=== PATIENT | male | born 1935 | race Caucasian/White ===

== ENCOUNTER 2021-06-29 16:31 | Observation (INO) ==
[2021-06-29] MEDS ORDERED: LACTATED RINGERS 1,000 ML IV ONE (17:01)
[2021-06-29] MEDS ORDERED: 0.9 % SODIUM CHLORIDE 500 ML IV ONE ×2 (17:03→18:28)
[2021-06-29 17:38] LABS: Basophils # (Auto) 0.03 K/mcL (0.00-0.30); Basophils % (Auto) 0.4 % (0.0-2.0); Eosinophils # (Auto) 0.02 K/mcL (0.00-0.70); Eosinophils % (Auto) 0.2 % (0.0-7.0); Hematocrit 39.9 % (40.1-51.0); Hemoglobin 13.5 g/dL (13.7-17.5); Lymphocytes # (Auto) 1.84 K/mcL (1.50-4.80); Lymphocytes % (Auto) 22.9 % (15.5-49.0); Mean Cell Volume 90.3 fL (80.0-100.0); Mean Corpuscular HGB Conc 33.8 g/dL (31.0-36.0); Mean Platelet Volume 10.3 fL (7.4-10.4); Monocytes # (Auto) 1.02 K/mcL (0.10-0.90); Monocytes % (Auto) 12.7 % (1.0-12.0); Neutrophils % (Auto) 63.8 % (38.0-78.0); Platelet Count 165 K/mcL (140-440); RBC 4.42 M/mcL (4.63-6.08); Red Cell Distribution Width 13.6 % (11.5-14.5); WBC 8.1 K/mcL (4.5-11.0)
--- NOTE | 2021-06-29 17:40 | Cat Scan Report ---
CLINICAL INFORMATION: Trauma COMPARISON: None. TECHNIQUE: 2.5 mm helical slices were obtained in the skull base to vertex. Following reconstruction, axial reformatted images were reviewed at bone and parenchymal windows. The exam was performed using radiation dose optimization techniques including, but not limited to, automated exposure control, adjustment of the mA and/or kV according to patient size and use of iterative reconstruction technique. FINDINGS: The ventricles, sulci, fissures, and cisterns are symmetrically enlarged compatible with mild age-related atrophy. No extra-axial fluid collections are identified. Mild patchy chronic ischemic changes, in the deep cerebral white matter, are expected for age. There is no hemorrhage, mass effect, or edema. Bone windows show no osseous abnormality. IMPRESSION: Mild atrophy and chronic ischemic changes in the deep cerebral white matter-expected for age. No acute findings Interpreted and Authenticated by: Geo Arteaga 06/29/21
--- NOTE | 2021-06-29 17:42 | XRay Report ---
CLINICAL INFORMATION: Syncope COMPARISON: 10/26/2011 TECHNIQUE: Portable FINDINGS: The heart size, mediastinum and pulmonary vessels are unremarkable. Sternotomy change is again noted. There is moderate interstitial disease in both mid and lower lungs likely representing progression in interstitial fibrosis. Interstitial disease is also noted on the remote 2012 exam, but much less severe. There is moderate chronic elevation left diaphragm. No effusions. The bones and soft tissues are within normal limits. IMPRESSION: Moderate interstitial disease in both mid and lower lungs likely reflecting progression in bilateral interstitial fibrosis. Moderate chronic elevation left diaphragm Interpreted and Authenticated by: Geo Arteaga 06/29/21
[2021-06-29 18:08] LABS: ALT/SGPT 21 U/L (<40); AST/SGOT 27 U/L (<40); Albumin 4.2 gm/dL (3.2-5.2); Albumin/Globulin Ratio 1.6 (1.0-2.3); Alkaline Phosphatase 80 U/L (39-117); Bilirubin,Total 0.4 mg/dL (0.1-1.0); Blood Urea Nitrogen 18 mg/dL (8-23); Carbon Dioxide 23 mmol/L (22-30); Chloride 104 mmol/L (96-108); Globulin 2.6 gm/dL (2.2-3.7); Glomerular Filtration Rate 76; Glucose 112 mg/dL (70-105)
--- NOTE | 2021-06-29 18:50 | Emergency Department Note ---
Syncope HPI General Chief Complaint: Syncope Stated Complaint: lightheaded, n/v Time Seen by Provider: 06/29/21 16:38 Source: patient and EMS Mode of arrival: EMS History of Present Illness HPI Narrative: Narrative: Very pleasant 86-year-old male with a history of: Adenocarcinoma status post partial colectomy, coronary artery disease, CABG 2006, SVT, hyperlipidemia, anemia presenting to the ED after a syncopal episode. Says he was doing work in his yard when he suddenly felt lightheaded and syncopized. Did hit the back of his head but does not take any blood thinners. He had no preceding symptoms other than feeling like he was going to pass out. No chest pain no shortness of breath no palpitations no focal neurologic complaint. No new leg swelling. No history of DVT or PE. Has felt lightheaded recently in the past. Currently has no acute complaints other than he says he is afraid to stand up because he will get lightheaded. Does not have any head pain neck pain thoracic or abdominal pain or pain or weakness in his extremities/no injuries. No recent medication changes. Says his only medication is cholesterol medication and some eyedrops of vitamins. Related Data Home Medications Medication Instructions Recorded Confirmed ascorbate calcium (vitamin C) 500 500 mg PO QDAY 11/26/14 05/28/21 mg tablet pravastatin 80 mg tablet 80 tab PO HS 11/26/14 06/29/21 (Pravachol) vitamins A,C,T-ufky-fzpyhg 14,320 1 ea PO BID 11/26/14 11/27/20 unit-226 mg-200 unit capsule (PreserVision AREDS) fluticasone propionate 50 1 spray INTRANASAL QDAY 03/27/20 11/27/20 mcg/actuation nasal spray,suspension nitroglycerin 0.4 mg sublingual 0.4 mg SUBLINGUAL Q5M PRN 03/27/20 11/27/20 tablet (Nitrostat) [id number] C-herb no.124 1 tab PO QDAY 04/10/20 05/28/21 [Airborne (ascorbic acid)] vitamin B complex 1 tab PO QDAY 04/22/20 11/27/20 Allergies Allergy/AdvReac Type Severity Reaction Status Date / Time No Known Drug Allergies Allergy Verified 06/29/21 16:31 Review of Systems ROS ROS Narrative: Narrative: At least 10 systems reviewed and otherwise acutely negative except as in the HPI PFSH Narrative Patient History Narrative: Narrative: Medical/Surgical/Family History All Active Problems Syncope (Acute) Atherosclerotic heart disease of [place] coronary artery without angina pectoris (Acute) Chronic blood loss anemia (Acute) Malignant neoplasm of right colon (Acute) Surgical History History of appendectomy History of cardiac catheterization History of cataract extraction History of colonoscopy History of coronary artery bypass graft 03/08/2007 History of thyroidectomy, 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 Head: Normocephalic, atraumatic, Eyes: No Icterus, no obvious conjunctival pallor ENT: Slightly dry mucus membranes, Neck: Supple, no midline tenderness Cardiac: Normal heart sounds, palpable peripheral pulses, no peripheral edema Pulmonary: Normal respiratory effort. Breath sounds clear, no wheeze, rhonchi, rales, Gastrointestinal: Abdomen soft, non-distended, non-tender, Musculoskeletal: No gross deformities, well perfused Skin: warm, dry Neuro: Alert and oriented. No gross focal deficits moving all 4 extremities with symmetric tone, symmetric sensation, face symmetric Course Vital Signs Vital signs: Vital Signs Temperature 36.0 C L 06/29/21 16:32 Pulse Rate 58 L 06/29/21 16:32 Respiratory Rate 18 06/29/21 16:32 Blood Pressure 168/73 06/29/21 16:32 Pulse Oximetry (%) 98 06/29/21 16:32 Temperature 36.6 C 06/30/21 00:01 Pulse Rate 58 L 06/30/21 00:01 Respiratory Rate 26 H 06/30/21 00:01 Blood Pressure 134/76 06/30/21 00:01 Pulse Oximetry (%) 98 06/30/21 00:01 [facility] Narrative Medical decision making narrative: Narrative: 86-year-old male with known cardiac history presents for an episode of syncope. Here he is very lightheaded when he attempts to stand up. Possibly orthostatic or vasovagal however other consideration for ACS arrhythmia metabolic or electrolyte abnormality. Does not sound central neurologic in nature. But will obtain a CT of his head because he did reportedly hit the back of his head when he fell. Is given some IV fluids Twelve-lead EKG sinus arrhythmia heart rate 61 IA, QRS, QTc within normal some LVH pattern no obvious acute ischemia Covid flu negative Chest x-ray shows some chronic lung disease no acute findings, CT of the head no acute finding CBC no leukocytosis, his hemoglobin today is in fact 13.5, Electrolytes no significant abnormality sodium is normal potassium is normal, normal renal function Initial troponin negative Laboratory studies are reassuring, they did attempt orthostatics on the patient when he stood up he immediately felt severely lightheaded and syncopal and nauseous and almost passed out they immediately laid him back into the bed. Did give him additional 500 cc bolus. Nurses did state he vagal down to heart rate in the 30s to 40s when he stood up. Reevaluation continues to feel well while at rest but symptomatic when standing. Do believe he will warrant observation admission for further treatment of what appears to be a symptomatic orthostatic syncope at this point and further trending of his troponins. Patient is unwilling to go to [facility] or be transferred elsewhere and is really hoping if we can keep him here, I have spoken with the hospitalist who is agreeable. Repeat troponin pending at the time of admission Lab Data Result diagrams: 06/29/21 16:35 06/29/21 16:35 Labs: Lab Results 06/29/21 06/29/21 06/29/21 Range/Units 16:35 16:35 16:35 WBC 8.1 (4.5-11.0) K/mcL RBC 4.42 L (4.63-6.08) M/mcL Hgb 13.5 L (13.7-17.5) g/dL Hct 39.9 L (40.1-51.0) % MCV 90.3 (80.0-100.0) fL MCH 30.5 (26.0-34.0) pg MCHC 33.8 (31.0-36.0) g/dL RDW 13.6 (11.5-14.5) % Plt Count 165 (140-440) K/mcL MPV 10.3 (7.4-10.4) fL Neut % (Auto) 63.8 (38.0-78.0) % Lymph % (Auto) 22.9 (15.5-49.0) % [place] % (Auto) 12.7 H (1.0-12.0) % Eos % (Auto) 0.2 (0.0-7.0) % Baso % (Auto) 0.4 (0.0-2.0) % Lymph # (Auto) 1.84 (1.50-4.80) K/mcL [place] # (Auto) 1.02 H (0.10-0.90) K/mcL Eos # (Auto) 0.02 (0.00-0.70) K/mcL Baso # (Auto) 0.03 (0.00-0.30) K/mcL Absolute Neutrophils 5.14 (1.80-8.00) K/mcL Sodium 140 (133-145) mmol/L Potassium 4.2 (3.3-5.1) mmol/L Chloride 104 (96-108) mmol/L Carbon Dioxide 23 (22-30) mmol/L Anion Gap 13.0 (8.0-16.0) BUN 18 (8-23) mg/dL Creatinine 0.9 (0.7-1.2) mg/dL GFR Calculation 76 Glucose 112 H (70-105) mg/dL Calcium 9.0 (8.6-10.4) mg/dL Total Bilirubin 0.4 (0.1-1.0) mg/dL AST 27 (<40) U/L ALT 21 (<40) U/L Alkaline Phosphatase 80 (39-117) U/L Troponin T < 0.01 (<0.03) ng/mL Total Protein 6.8 (5.9-8.4) gm/dL Albumin 4.2 (3.2-5.2) gm/dL Globulin 2.6 (2.2-3.7) gm/dL Albumin/Globulin Ratio 1.6 (1.0-2.3) Urine Color Urine Appearance (Clear) Urine pH (5.0-9.0) Ur Specific [place] (1.000-1.035) Urine Protein (Negative) mg/dL Urine Glucose (UA) (Negative) mg/dL Urine Ketones (Negative) mg/dL Urine Occult Blood (Negative) mg/dL Urine Nitrate (Negative) Urine Bilirubin (Negative) mg/dL Urine Urobilinogen mg/dL Ur Leukocyte Esterase (Negative) /uL Urine RBC (0-3) /hpf Urine WBC (0-4) /hpf Ur Squamous Epith Cells (0-4) /hpf Urine Bacteria (0) /hpf Urine Mucus (None) /hpf Ur Culture Indicated? 06/29/21 06/29/21 Range/Units 19:15 20:42 WBC (4.5-11.0) K/mcL RBC (4.63-6.08) M/mcL Hgb (13.7-17.5) g/dL Hct (40.1-51.0) % MCV (80.0-100.0) fL MCH (26.0-34.0) pg MCHC (31.0-36.0) g/dL RDW (11.5-14.5) % Plt Count (140-440) K/mcL MPV (7.4-10.4) fL Neut % (Auto) (38.0-78.0) % Lymph % (Auto) (15.5-49.0) % [place] % (Auto) (1.0-12.0) % Eos % (Auto) (0.0-7.0) % Baso % (Auto) (0.0-2.0) % Lymph # (Auto) (1.50-4.80) K/mcL [place] # (Auto) (0.10-0.90) K/mcL Eos # (Auto) (0.00-0.70) K/mcL Baso # (Auto) (0.00-0.30) K/mcL Absolute Neutrophils (1.80-8.00) K/mcL Sodium (133-145) mmol/L Potassium (3.3-5.1) mmol/L Chloride (96-108) mmol/L Carbon Dioxide (22-30) mmol/L Anion Gap (8.0-16.0) BUN (8-23) mg/dL Creatinine (0.7-1.2) mg/dL GFR Calculation Glucose (70-105) mg/dL Calcium (8.6-10.4) mg/dL Total Bilirubin (0.1-1.0) mg/dL AST (<40) U/L ALT (<40) U/L Alkaline Phosphatase (39-117) U/L Troponin T < 0.01 (<0.03) ng/mL Total Protein (5.9-8.4) gm/dL Albumin (3.2-5.2) gm/dL Globulin (2.2-3.7) gm/dL Albumin/Globulin Ratio (1.0-2.3) Urine Color Yellow Urine Appearance Clear (Clear) Urine pH 7.0 (5.0-9.0) Ur Specific [place] 1.014 (1.000-1.035) Urine Protein Negative (Negative) mg/dL Urine Glucose (UA) Negative (Negative) mg/dL Urine Ketones 5 A (Negative) mg/dL Urine Occult Blood Negative (Negative) mg/dL Urine Nitrate Negative (Negative) Urine Bilirubin Negative (Negative) mg/dL Urine Urobilinogen Negative mg/dL Ur Leukocyte Esterase Negative (Negative) /uL Urine RBC 1 (0-3) /hpf Urine WBC 1 (0-4) /hpf Ur Squamous Epith Cells 0 (0-4) /hpf Urine Bacteria None (0) /hpf Urine Mucus Few A (None) /hpf Ur Culture Indicated? No ED POC Tests ED POC Tests: ALYSSIA - Influenza A Negative ALYSSIA - Influenza B Negative ALYSSIA - SARS Antigen Negative Discharge Plan Patient/Caregiver Discharge Instructions Pt seen by DENTIST ATTENDANT/PA only: No Clinical Impression: Syncope Patient Disposition: Xfer As Outpt/Obs ([facility]) Condition: Fair Discharge Date/Time: 06/29/21 21:20 Discharge Location: [facility]
--- NOTE | 2021-06-29 19:22 | Internal Med History&Physical ---
HPI History of Present Illness Patient information: Note initiated : 06/29/21 at 7:13 pm Service Date, if different from initiated Date: [] Patient: Carloz Hutchison 86 y/o M admitted on for lightheaded, n/v. Chief Complaint: [] Chief complaint: Syncope History of present illness: Mr. Hutchison is a 86 year old male with a history of hyperlipidemia, chronic anemia, SVT, coronary artery disease status post CABG 2006, colon adenocarcinoma status post right hemicolectomy 2020, obesity who presented to the emergency department after a syncopal episode that occurred while he was doing some yard work. The patient said that he suddenly felt lightheaded and passed out. The patient denied any preceding symptoms prior to the syncope. The patient did hit his head, a noncontrast CT head in the ED did not show any acute changes. In the emergency department, the patient was found to have positive orthostatic vitals. EKG did not show any acute ischemic changes, troponin was normal in the emergency department. Chest x-ray did not show any acute changes. Routine lab work showed chronic anemia, stable renal function and electrolytes. Hospital medicine was consulted for admission. Review of systems Constitutional: no fever, fatigue, or weight loss Eyes: no vision changes or pain Cardiovascular: no chest pain, positive for palpitations Respiratory: no cough or dyspnea Gastrointestinal: positive for nausea and diarrhea, no abdominal pain Genitourinary: no dysuria or difficulty voiding Musculoskeletal: no arthralgia or myalgia Integumentary: no skin lesion or wound Neurological: no focal weakness or numbness Psychiatric: no anxiety or depression Physical exam Head: Atraumatic, normal inspection. Eyes: normal appearance, no scleral icterus. Neck: full ROM Respiratory: no respiratory distress. Cardiovascular: normal rate and rhythm, S1, S2. GI/Abdominal: soft, nontender, no guarding. Extremities: full range of motion, nontender. Neurological: CN II-XII intact, intact motor, intact sensation. Psychiatric: normal mood. 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 History of tonsillectomy Family History Mother Alzheimers disease Daughter Pancreatic cancer, Onset Age: 40 Father Prostate cancer Uncle Diabetes Social History alcohol intake frequency: holiday/special occasion only MEDS/ALLERGIES Home Medications and Allergies Home Medications Medication Instructions Recorded Confirmed Type ascorbate calcium (vitamin C) 500 500 mg PO QDAY 11/26/14 05/28/21 History mg tablet pravastatin 80 mg tablet 80 tab PO HS 11/26/14 06/29/21 History (Pravachol) vitamins A,C,H-pwrf-yzrcay 14,320 1 ea PO BID 11/26/14 11/27/20 History unit-226 mg-200 unit capsule (PreserVision AREDS) fluticasone propionate 50 1 spray INTRANASAL QDAY 03/27/20 11/27/20 History mcg/actuation nasal spray,suspension nitroglycerin 0.4 mg sublingual 0.4 mg SUBLINGUAL Q5M PRN 03/27/20 11/27/20 History tablet (Nitrostat) ujojhmvz-icj-khs C-herb no.124 1 tab PO QDAY 04/10/20 05/28/21 History [Airborne (ascorbic acid)] vitamin B complex 1 tab PO QDAY 04/22/20 11/27/20 History Allergies Allergy/AdvReac Type Severity Reaction Status Date / Time No Known Drug Allergies Allergy Verified 06/29/21 16:31 EXAM Constitutional Vitals: Temp Pulse Resp BP Pulse Ox 96.8 F L 68 12 144/67 99 06/29/21 16:32 06/29/21 18:34 06/29/21 18:34 06/29/21 18:31 06/29/21 18:34 DATA Data Completed and Pending Labs: Labs from last 24 hours 06/29/21 06/29/21 06/29/21 16:35 16:35 16:35 WBC 8.1 RBC 4.42 L Hgb 13.5 L Hct 39.9 L MCV 90.3 MCH 30.5 MCHC 33.8 RDW 13.6 Plt Count 165 MPV 10.3 Neut % (Auto) 63.8 Lymph % (Auto) 22.9 [place] % (Auto) 12.7 H Eos % (Auto) 0.2 Baso % (Auto) 0.4 Lymph # (Auto) 1.84 [place] # (Auto) 1.02 H Eos # (Auto) 0.02 Baso # (Auto) 0.03 Absolute Neutrophils 5.14 Sodium 140 Potassium 4.2 Chloride 104 Carbon Dioxide 23 Anion Gap 13.0 BUN 18 Creatinine 0.9 GFR Calculation 76 Glucose 112 H Calcium 9.0 Total Bilirubin 0.4 AST 27 ALT 21 Alkaline Phosphatase 80 Troponin T < 0.01 Total Protein 6.8 Albumin 4.2 Globulin 2.6 Albumin/Globulin Ratio 1.6 A/P Narrative A/P Narrative: Assessment: 86 year old male with a history of hyperlipidemia, chronic anemia, SVT, coronary artery disease status post CABG 2006, colon adenocarcinoma status post right hemicolectomy 2020, obesity who presented to the emergency department after a syncopal episode that occurred while he was doing some yard work. #Syncope, nausea, diarrhea #History of paroxysmal supraventricular tachycardia #Coronary artery disease status post CABG #Chronic normocytic anemia #Colon adenocarcinoma status post right hemicolectomy #Hypertension #BPH #Obesity BMI 33 Plan -Admit to observation on MedSurg unit. -IV fluid. -Trend troponin. -Orthostatic vitals. -phototypesetting equipment monitor. -TTE -Consider adding antihypertensive. -Home medication reconciliation. -Consider work-up for PE but seems unlikely. -Consider MRI brain. -Regular diet -PT consult -Disposition: Home when stable, consider outpatient phototypesetting equipment monitor. Time Spent With Patient Time: Total time spent is greater than 50% in coordination of care (as documented) at patient's floor/unit and/or counseling patient:
[2021-06-29 19:56] LABS: Appearance,Urine CLEAR (Clear); Bilirubin,Urine Negative (Negative); Color,Urine YELLOW; Culture Indicated,Urine No; Glucose,Urine (UA) Negative (Negative); Ketones,Urine 5 mg/dL (Negative); Leukocyte Esterase,Urine Negative /uL (Negative); Mucus,Urine FEW /hpf; Nitrate,Urine Negative (Negative); Protein,Urine Negative (Negative); Specific Gravity,Urine 1.014 (1.000-1.035); Urine Blood Negative (Negative); Urine RBC 1 /hpf (0-3); Urine Squamous Epithelial Cell 0 /hpf (0-4); Urine WBC 1 /hpf (0-4); Urobilinogen,Urine Negative
--- NOTE | 2021-06-29 20:09 | EKG ---
[facility] Test Date: 2021-06-29 Pat Name: Carloz Hutchison Department: ED Room: Gender: Male Superintendent [employer]: [employer] : 1935 Requested By: Darnell Naidu Order Number: [id number] Reading MD: Florence Rincon D.O. Measurements Intervals [place] Rate: 62 P: 70 [place]: 157 QRS: -54 QRSD: 100 T: 41 QT: 418 QTc: 425 Interpretive Statements Sinus arrhythm Probable left atrial enlargement Abnormal R-wave progression, early transition Electronically Signed On 06-29-2021 20:09:49 PST by Florence Rincon D.O. /store/[email or web address]/[id number]
--- NOTE | 2021-06-29 20:11 | EKG ---
[facility] Test Date: 2021-06-29 Pat Name: Carloz Hutchison Department: ED Room: Gender: Male Manager Medicaid: [employer] : 1935 Requested By: Ez Rhodes Order Number: [id number] Reading MD: Florence Rincon D.O. Measurements Intervals [place] Rate: 61 P: 71 [place]: 153 QRS: -53 QRSD: 102 T: 64 QT: 455 QTc: 459 Interpretive Statements Sinus arrhythmia Probable left atrial enlargement Left anterior fascicular block Abnormal R-wave progression, early transition Left ventricular hypertrophy Electronically Signed On 06-29-2021 20:11:00 PST by Florence Rincon D.O. /store/M0/[id number]
[2021-06-29] MEDS ORDERED: 0.9 % SODIUM CHLORIDE 1,000 ML IV SCH (21:30)
[2021-06-29] MEDS ORDERED: ONDANSETRON 4 MG/2 ML VIAL IV PRN (21:30)
[2021-06-29] MEDS ORDERED: ACETAMINOPHEN 325 MG TABLET PO PRN (21:30)
[2021-06-29] MEDS: SENNOSIDES 1 TABLET PO SCH ×2 (22:00→22:01)
[2021-06-29] MEDS: 0.9 % SODIUM CHLORIDE 10 ML SYRINGE IV SCH (22:07)
[2021-06-30 04:46] LABS: Basophils # (Auto) 0.02 K/mcL (0.00-0.30); Basophils % (Auto) 0.2 % (0.0-2.0); Eosinophils # (Auto) 0.03 K/mcL (0.00-0.70); Eosinophils % (Auto) 0.4 % (0.0-7.0); Hematocrit 38.1 % (40.1-51.0); Hemoglobin 12.8 g/dL (13.7-17.5); Lymphocytes # (Auto) 1.82 K/mcL (1.50-4.80); Lymphocytes % (Auto) 22.3 % (15.5-49.0); Mean Corpuscular HGB Conc 33.6 g/dL (31.0-36.0); Mean Platelet Volume 10.4 fL (7.4-10.4); Monocytes # (Auto) 1.11 K/mcL (0.10-0.90); Monocytes % (Auto) 13.6 % (1.0-12.0); Neutrophils % (Auto) 63.5 % (38.0-78.0); Platelet Count 153 K/mcL (140-440); RBC 4.14 M/mcL (4.63-6.08); Red Cell Distribution Width 13.6 % (11.5-14.5); WBC 8.2 K/mcL (4.5-11.0)
[2021-06-30 05:04] LABS: ALT/SGPT 16 U/L (<40); AST/SGOT 21 U/L (<40); Albumin 3.6 gm/dL (3.2-5.2); Albumin/Globulin Ratio 1.5 (1.0-2.3); Alkaline Phosphatase 71 U/L (39-117); Bilirubin,Direct < 0.2 mg/dL (0-0.3); Bilirubin,Total 0.5 mg/dL (0.1-1.0); Blood Urea Nitrogen 14 mg/dL (8-23); Calcium 8.6 mg/dL (8.6-10.4); Carbon Dioxide 24 mmol/L (22-30); Chloride 106 mmol/L (96-108); Globulin 2.4 gm/dL (2.2-3.7); Glomerular Filtration Rate 85; Glucose 108 mg/dL (70-105); Lactate Dehydrogenase 185 U/L (135-225); Phosphorous 3.5 mg/dL (2.5-4.5); Triglycerides 84 mg/dL (<150); Uric Acid 4.5 mg/dL (2.5-8.0)
[2021-06-30] MEDS: 0.9 % SODIUM CHLORIDE 10 ML SYRINGE IV SCH ×2 (05:25→15:44)
[2021-06-30] MEDS ORDERED: NITROGLYCERIN 0.4 MG TAB.SUBL SL PRN (07:38)
--- NOTE | 2021-06-30 17:14 | Discharge Summary ---
Discharge Provider Provider Patient information: Note initiated : 06/30/21 at 5:11 pm Service Date, if different from initiated Date: [] Patient: Carloz Hutchison 86 y/o M admitted on 06/29/21 for lightheaded, n/v. Chief Complaint: [] Date of admission: 06/29/21 21:20 Discharge date: 06/30/21 Primary care physician: Indigo Crockett Consults: 06/29/21 Consult to Physician [CONS] Stat Comment: Consulting Provider: Ja Murphy Reason For Exam: Physician to Consult Discharge Meds Discharge Medications Home Medications ascorbate calcium (vitamin C) 500 mg tablet 500 mg PO QDAY 11/26/14 [History Confirmed 06/30/21 Last Taken 06/29/21 09:00] pravastatin 80 mg tablet (Pravachol) 80 tab PO HS 11/26/14 [History Confirmed 06/30/21 Last Taken 06/28/21 21:00] nitroglycerin 0.4 mg sublingual tablet (Nitrostat) 0.4 mg SUBLINGUAL Q5M PRN 03/27/20 [History Confirmed 06/30/21 Last Taken 03/26/20] Ocuvite Preservision 1 tab-cap PO QDAY 06/30/21 [History Confirmed 06/30/21 Last Taken 06/29/21 09:00] COURSE Hospital Course Hospital course: Mr. Hutchison is a 86 year old male with a history of hyperlipidemia, chronic anemia, SVT, coronary artery disease status post CABG 2006, colon adenocarcinoma status post right hemicolectomy 2020, obesity who presented to the emergency department after a syncopal episode that occurred while he was doing some yard work. The patient said that he suddenly felt lightheaded and passed out. The patient denied any preceding symptoms prior to the syncope. The patient did hit his head, a noncontrast CT head in the ED did not show any acute changes. In the emergency department, the patient was found to have positive orthostatic vitals. EKG did not show any acute ischemic changes, troponin was normal in the emergency department. Chest x-ray did not show any acute changes. Routine lab work showed chronic anemia, stable renal function and electrolytes. Hospital medicine was consulted for admission. 06/30 Troponin trend overnight was normal. Back to baseline today, cleared to discharge home by PT. No concerning rhythm changes on telemetry. ECHO report pending. 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 Follow up with PCP. Physical exam Head: Atraumatic, normal inspection. Eyes: normal appearance, no scleral icterus. Neck: full ROM Respiratory: no respiratory distress. Cardiovascular: normal rate and rhythm, S1, S2. GI/Abdominal: soft, nontender, no guarding. Extremities: full range of motion, nontender. Neurological: CN II-XII intact, intact motor, intact sensation. Psychiatric: normal mood. Skin: warm, normal color Discharge diagnosis: Syncope Time Spent with Patient Time attestation: Total time spent providing and/or coordinating discharge services: EXAM Constitutional Vitals: Temp Pulse Resp BP Pulse Ox 98.6 F 52 L 13 141/60 100 06/30/21 16:01 06/30/21 16:16 06/30/21 08:44 06/30/21 16:01 06/30/21 16:16 Discharge Data Data Completed and Pending Labs on day of discharge: Labs from last 24 hours 06/30/21 06/30/21 06/30/21 03:57 03:57 03:57 WBC 8.2 RBC 4.14 L Hgb 12.8 L Hct 38.1 L MCV 92.0 MCH 30.9 MCHC 33.6 RDW 13.6 Plt Count 153 MPV 10.4 Neut % (Auto) 63.5 Lymph % (Auto) 22.3 Davison % (Auto) 13.6 H Eos % (Auto) 0.4 Baso % (Auto) 0.2 Lymph # (Auto) 1.82 Davison # (Auto) 1.11 H Eos # (Auto) 0.03 Baso # (Auto) 0.02 Absolute Neutrophils 5.19 Sodium 139 Potassium 4.1 Chloride 106 Carbon Dioxide 24 Anion Gap 9.0 BUN 14 Creatinine 0.7 GFR Calculation 85 Glucose 108 H Uric Acid 4.5 Calcium 8.6 Phosphorus 3.5 Magnesium 2.1 Total Bilirubin 0.5 Direct Bilirubin < 0.2 GGT 28 AST 21 ALT 16 Alkaline Phosphatase 71 Lactate Dehydrogenase 185 Troponin T < 0.01 Total Protein 6.0 Albumin 3.6 Globulin 2.4 Albumin/Globulin Ratio 1.5 Triglycerides 84 Urine Color Urine Appearance Urine pH Ur Specific [place] Urine Protein Urine Glucose (UA) Urine Ketones Urine Occult Blood Urine Nitrate Urine Bilirubin Urine Urobilinogen Ur Leukocyte Esterase Urine RBC Urine WBC Ur Squamous Epith Cells Urine Bacteria Urine Mucus Ur Culture Indicated? 06/30/21 06/29/21 06/29/21 00:33 20:42 19:15 WBC RBC Hgb Hct MCV MCH MCHC RDW Plt Count MPV Neut % (Auto) Lymph % (Auto) Davison % (Auto) Eos % (Auto) Baso % (Auto) Lymph # (Auto) Davison # (Auto) Eos # (Auto) Baso # (Auto) Absolute Neutrophils Sodium Potassium Chloride Carbon Dioxide Anion Gap BUN Creatinine GFR Calculation Glucose Uric Acid Calcium Phosphorus Magnesium Total Bilirubin Direct Bilirubin GGT AST ALT Alkaline Phosphatase Lactate Dehydrogenase Troponin T < 0.01 < 0.01 Total Protein Albumin Globulin Albumin/Globulin Ratio Triglycerides Urine Color Yellow Urine Appearance Clear Urine pH 7.0 Ur Specific [place] 1.014 Urine Protein Negative Urine Glucose (UA) Negative Urine Ketones 5 A Urine Occult Blood Negative Urine Nitrate Negative Urine Bilirubin Negative Urine Urobilinogen Negative Ur Leukocyte Esterase Negative Urine RBC 1 Urine WBC 1 Ur Squamous Epith Cells 0 Urine Bacteria None Urine Mucus Few A Ur Culture Indicated? No 06/29/21 06/29/21 06/29/21 16:35 16:35 16:35 WBC 8.1 RBC 4.42 L Hgb 13.5 L Hct 39.9 L MCV 90.3 MCH 30.5 MCHC 33.8 RDW 13.6 Plt Count 165 MPV 10.3 Neut % (Auto) 63.8 Lymph % (Auto) 22.9 Davison % (Auto) 12.7 H Eos % (Auto) 0.2 Baso % (Auto) 0.4 Lymph # (Auto) 1.84 Davison # (Auto) 1.02 H Eos # (Auto) 0.02 Baso # (Auto) 0.03 Absolute Neutrophils 5.14 Sodium 140 Potassium 4.2 Chloride 104 Carbon Dioxide 23 Anion Gap 13.0 BUN 18 Creatinine 0.9 GFR Calculation 76 Glucose 112 H Uric Acid Calcium 9.0 Phosphorus Magnesium Total Bilirubin 0.4 Direct Bilirubin GGT AST 27 ALT 21 Alkaline Phosphatase 80 Lactate Dehydrogenase Troponin T < 0.01 Total Protein 6.8 Albumin 4.2 Globulin 2.6 Albumin/Globulin Ratio 1.6 Triglycerides Urine Color Urine Appearance Urine pH Ur Specific [place] Urine Protein Urine Glucose (UA) Urine Ketones Urine Occult Blood Urine Nitrate Urine Bilirubin Urine Urobilinogen Ur Leukocyte Esterase Urine RBC Urine WBC Ur Squamous Epith Cells Urine Bacteria Urine Mucus Ur Culture Indicated? Discharge Plan Patient/Caregiver Discharge Instructions Activity: increase activity as tolerated Diet: Regular Diet Prescriptions: Continued pravastatin [Pravachol] 80 MG tablet 80 tab PO HS 0RF ascorbate calcium (vitamin C) 500 MG tablet 500 mg PO QDAY 0RF nitroglycerin [Nitrostat] 0.4 mg Tablet, Sublingual 0.4 mg SUBLINGUAL Q5M PRN (Reason: Chest Pain) 0RF Ocuvite Preservision 1 tab-cap PO QDAY 0RF Follow Up Plan Follow up with: Indigo Crockett MD [Primary Care Provider] - 07/06/21 2:30 pm (Please check in 15 minutes early) Patient Disposition: Home, Self-Care Prognosis: Fair Overall status at discharge: patient is back to baseline Discharge Orders: Discharge Order (Routine); Ordered 06/30/21 Ordered By: Ja Murphy QUALITY VTE Deep Vein Thrombosis/Pulmonary Embolism Present on Admission: No
[2021-06-30] MEDS ORDERED: SIMVASTATIN 40 MG TABLET PO SCH (21:00)
[2021-06-30] MEDS ORDERED: PRAVASTATIN 80 MG PO SCH (21:00)
== END 2021-06-30 17:20 | disposition home or self-care (01) ==
LOC: ED 16:31 → ICU 16:31
PROVIDERS: ADMIT Internal Medicine; ATTEND Internal Medicine